=== PATIENT | female | born 1975 | race Two or more races ===

== ENCOUNTER 2017-01-19 00:01 | Emergency (ER) | payer MEDICAID ==
[~2017-01-19] VITALS: Ht 160 cm; Wt 59.0 kg
[2017-01-19 00:55] LABS: Basophils # (auto) 0.1 uL; Basophils % (auto) 1.6 % (0.0-2.0); Eosinophils # (auto) 0.1 uL; Eosinophils % (auto) 2.4 % (0.0-7.0); Hematocrit 35.6 % (36.0-46.0); Lymphocytes # (auto) 1.6 uL; Lymphocytes % (auto) 43.4 % (10.0-50.0); Mean Corpuscular Hgb Conc. 33.6 g/dL (32.0-36.0); Mean Corpuscular Volume 86.3 fL (80.0-100.0); Mean Platelet Volume 7.3 fL (7.4-10.4); Monocytes # (auto) 0.3 uL; Monocytes % (auto) 8.8 % (0.0-12.0); Neutrophils # (auto) 1.6 uL; Neutrophils % (auto) 43.8 % (37.0-80.0); Platelet Count (auto) 287 10^3/uL (140-450); Red Cell Distribution Width 15.8 % (11.6-16.0); White Blood Cell 3.7 10^3/uL (4.4-10.8)
[2017-01-19 01:12] LABS: BUN/Creatinine Ratio 17.1; Calcium 8.6 mg/dL (8.5-10.1); Potassium 3.6 mmol/L (3.5-5.1)
[2017-01-19 01:14] LABS: Bilirubin, Total 0.4 mg/dL (0.2-1.0)
[2017-01-19 04:54] LABS: Urine Bilirubin Negative (Negative); Urine Color Yellow (Yellow); Urine Glucose Normal (Normal); Urine Ketone TRACE (Negative); Urine Mucus FEW (None Seen); Urine Nitrite Negative (Negative); Urine RBC 2 /hpf (0 - 4); Urine Squamous Epithelial Cell MOD /hpf (<5); Urine pH 5.5 (5.0-8.0)
[2017-01-19 04:55] LABS: Urine Blood 3+ /uL (Negative)
[2017-01-19 05:15] VITALS: BP 117/75
[2017-01-19] MEDS ORDERED: cefTRIAXone SOD 1,000 MG VL IM ONE (05:30)
[2017-01-19] MEDS ORDERED: IBUPROFEN 600 MG TAB PO ONE (05:30)
[2017-01-19] MEDS ORDERED: LIDOCAINE 1% HCL (LOCAL ANESTH.) INJ 20ML MDV ONE (05:33)
== END 2017-01-19 06:01 | disposition home or self-care (01) ==
LOC: ER 00:01
DX: N39.0 Urinary tract infection, site not specified (principal); M79.1 Myalgia; F15.10 Other stimulant abuse, uncomplicated; F17.210 Nicotine dependence, cigarettes, uncomplicated; Z04.6 Encounter for general psychiatric examination, requested by authority
CPT/HCPCS: 36415; 80053; 80307; 81001; 81025; 85025; 96372; 99284; J0696; J2001